=== PATIENT | female | born 1955 | race Native Hawaiian/Other Pacific Islander ===

== ENCOUNTER 2021-02-06 07:45 | Outpatient (CLI) | payer OTHER ==
[~2021-02-06] VITALS: Ht 152.4 cm; Wt 86.6 kg
== END 2021-02-06 22:43 | disposition home or self-care (01) ==
LOC: DIABINF 07:45
PROVIDERS: ATTEND Internal Medicine Endocrinology, Diabetes & Metabolism
DX: E11.65 Type 2 diabetes mellitus with hyperglycemia (principal); I10 Essential (primary) hypertension; E78.49 Other hyperlipidemia; E66.8 Other obesity; Z68.39 Body mass index [BMI] 39.0-39.9, adult; N18.9 Chronic kidney disease, unspecified; D64.89 Other specified anemias; H35.30 Unspecified macular degeneration; E55.9 Vitamin D deficiency, unspecified
CPT/HCPCS: 82948; 96365; 96366; 96521; J1815; J1817

== ENCOUNTER 2021-02-07 12:40 | Outpatient (CLI) | payer OTHER ==
[~2021-02-07] VITALS: Ht 152.4 cm; Wt 86.6 kg
== END 2021-02-07 20:09 | disposition home or self-care (01) ==
LOC: DIABINF 12:40
PROVIDERS: ATTEND Internal Medicine Endocrinology, Diabetes & Metabolism
DX: E11.65 Type 2 diabetes mellitus with hyperglycemia (principal); E11.40 Type 2 diabetes mellitus with diabetic neuropathy, unspecified; H35.30 Unspecified macular degeneration; I10 Essential (primary) hypertension; D64.89 Other specified anemias; E78.2 Mixed hyperlipidemia; E66.8 Other obesity; Z68.37 Body mass index [BMI] 37.0-37.9, adult; N18.31 Chronic kidney disease, stage 3a; E55.9 Vitamin D deficiency, unspecified
CPT/HCPCS: 82948; 96365; 96366; 96521; J1815; J1817

== ENCOUNTER 2021-02-13 07:47 | Outpatient (CLI) | payer OTHER ==
[~2021-02-13] VITALS: Ht 152.4 cm; Wt 86.6 kg
== END 2021-02-13 22:39 | disposition home or self-care (01) ==
LOC: DIABINF 07:47
PROVIDERS: ATTEND Internal Medicine Endocrinology, Diabetes & Metabolism
DX: E11.65 Type 2 diabetes mellitus with hyperglycemia (principal); E11.40 Type 2 diabetes mellitus with diabetic neuropathy, unspecified; H35.30 Unspecified macular degeneration; I10 Essential (primary) hypertension; D64.89 Other specified anemias; E78.2 Mixed hyperlipidemia; E66.8 Other obesity; Z68.37 Body mass index [BMI] 37.0-37.9, adult; N18.31 Chronic kidney disease, stage 3a; E55.9 Vitamin D deficiency, unspecified
CPT/HCPCS: 82948; 96365; 96366; 96521; J1815; J1817

== ENCOUNTER 2021-02-14 12:53 | Outpatient (CLI) | payer OTHER ==
[~2021-02-14] VITALS: Ht 152.4 cm; Wt 86.6 kg
== END 2021-02-14 19:21 | disposition home or self-care (01) ==
LOC: DIABINF 12:53
PROVIDERS: ATTEND Internal Medicine Endocrinology, Diabetes & Metabolism
DX: E11.65 Type 2 diabetes mellitus with hyperglycemia (principal); E11.40 Type 2 diabetes mellitus with diabetic neuropathy, unspecified; H35.30 Unspecified macular degeneration; I10 Essential (primary) hypertension; D64.89 Other specified anemias; E78.2 Mixed hyperlipidemia; E66.8 Other obesity; Z68.37 Body mass index [BMI] 37.0-37.9, adult; N18.31 Chronic kidney disease, stage 3a; E55.9 Vitamin D deficiency, unspecified
CPT/HCPCS: 82948; 96365; 96366; 96521; J1815; J1817

== ENCOUNTER 2021-02-20 08:05 | Outpatient (CLI) | payer OTHER ==
[~2021-02-20] VITALS: Ht 152.4 cm; Wt 86.6 kg
== END 2021-02-20 11:30 | disposition home or self-care (01) ==
LOC: DIABINF 08:05
PROVIDERS: ATTEND Internal Medicine Endocrinology, Diabetes & Metabolism
DX: E11.65 Type 2 diabetes mellitus with hyperglycemia (principal); E11.40 Type 2 diabetes mellitus with diabetic neuropathy, unspecified; E78.2 Mixed hyperlipidemia; I10 Essential (primary) hypertension; Z79.4 Long term (current) use of insulin; N18.31 Chronic kidney disease, stage 3a; E66.8 Other obesity; Z68.37 Body mass index [BMI] 37.0-37.9, adult; E55.9 Vitamin D deficiency, unspecified; H35.30 Unspecified macular degeneration
CPT/HCPCS: 82948; 96365; 96366; 96521; J1815; J1817

== ENCOUNTER 2021-02-21 12:47 | Outpatient (CLI) | payer OTHER ==
[~2021-02-21] VITALS: Ht 152.4 cm; Wt 87.1 kg
== END 2021-02-21 16:00 | disposition home or self-care (01) ==
LOC: DIABINF 12:47
PROVIDERS: ATTEND Internal Medicine Endocrinology, Diabetes & Metabolism
DX: E11.65 Type 2 diabetes mellitus with hyperglycemia (principal); E11.40 Type 2 diabetes mellitus with diabetic neuropathy, unspecified; E78.2 Mixed hyperlipidemia; I10 Essential (primary) hypertension; Z79.4 Long term (current) use of insulin; N18.31 Chronic kidney disease, stage 3a; E66.8 Other obesity; Z68.37 Body mass index [BMI] 37.0-37.9, adult; E55.9 Vitamin D deficiency, unspecified; H35.30 Unspecified macular degeneration
CPT/HCPCS: 82948; 96365; 96366; 96521; J1815; J1817

== ENCOUNTER 2021-02-27 08:11 | Outpatient (CLI) | payer OTHER ==
[~2021-02-27] VITALS: Ht 152.4 cm; Wt 87.1 kg
== END 2021-02-27 11:30 | disposition home or self-care (01) ==
LOC: DIABINF 08:11
PROVIDERS: ATTEND Nurse Practitioner
DX: E11.65 Type 2 diabetes mellitus with hyperglycemia (principal); E11.40 Type 2 diabetes mellitus with diabetic neuropathy, unspecified; E78.2 Mixed hyperlipidemia; I10 Essential (primary) hypertension; Z79.4 Long term (current) use of insulin; N18.31 Chronic kidney disease, stage 3a; E66.8 Other obesity; Z68.37 Body mass index [BMI] 37.0-37.9, adult; E55.9 Vitamin D deficiency, unspecified; H35.30 Unspecified macular degeneration; D64.89 Other specified anemias
CPT/HCPCS: 82948; 96365; 96366; 96521; J1815; J1817

== ENCOUNTER 2021-02-28 12:37 | Outpatient (CLI) | payer OTHER ==
[~2021-02-28] VITALS: Ht 152.4 cm; Wt 87.1 kg
== END 2021-02-28 16:00 | disposition home or self-care (01) ==
LOC: DIABINF 12:37
PROVIDERS: ATTEND Nurse Practitioner
DX: E11.65 Type 2 diabetes mellitus with hyperglycemia (principal); E11.40 Type 2 diabetes mellitus with diabetic neuropathy, unspecified; I10 Essential (primary) hypertension; E78.00 Pure hypercholesterolemia, unspecified; N18.30 Chronic kidney disease, stage 3 unspecified; E66.9 Obesity, unspecified; Z68.37 Body mass index [BMI] 37.0-37.9, adult; H35.30 Unspecified macular degeneration; E11.319 Type 2 diabetes mellitus with unspecified diabetic retinopathy without macular edema; E55.9 Vitamin D deficiency, unspecified; D64.89 Other specified anemias; J30.2 Other seasonal allergic rhinitis
CPT/HCPCS: 82948; 96365; 96366; 96521; J1815; J1817

== ENCOUNTER 2021-03-07 12:33 | Outpatient (CLI) | payer OTHER ==
[~2021-03-07] VITALS: Ht 152.4 cm; Wt 87.1 kg
== END 2021-03-07 23:20 | disposition home or self-care (01) ==
LOC: DIABINF 12:33
PROVIDERS: ATTEND Internal Medicine Endocrinology, Diabetes & Metabolism
DX: E11.65 Type 2 diabetes mellitus with hyperglycemia (principal); E11.40 Type 2 diabetes mellitus with diabetic neuropathy, unspecified; H35.30 Unspecified macular degeneration; I10 Essential (primary) hypertension; D64.89 Other specified anemias; E78.2 Mixed hyperlipidemia; E66.8 Other obesity; Z68.37 Body mass index [BMI] 37.0-37.9, adult; N18.31 Chronic kidney disease, stage 3a; E55.9 Vitamin D deficiency, unspecified
CPT/HCPCS: 82948; 96365; 96366; 96521; J1815; J1817

== ENCOUNTER 2021-03-14 12:35 | Outpatient (CLI) | payer OTHER ==
[~2021-03-14] VITALS: Ht 152.4 cm; Wt 87.1 kg
== END 2021-03-14 22:06 | disposition home or self-care (01) ==
LOC: DIABINF 12:35
PROVIDERS: ATTEND Nurse Practitioner
DX: E11.65 Type 2 diabetes mellitus with hyperglycemia (principal); E11.40 Type 2 diabetes mellitus with diabetic neuropathy, unspecified; H35.30 Unspecified macular degeneration; I10 Essential (primary) hypertension; D64.89 Other specified anemias; E78.2 Mixed hyperlipidemia; E66.8 Other obesity; Z68.37 Body mass index [BMI] 37.0-37.9, adult; N18.31 Chronic kidney disease, stage 3a; E55.9 Vitamin D deficiency, unspecified
CPT/HCPCS: 82948; 96365; 96366; 96521; J1815; J1817

== ENCOUNTER 2021-03-21 12:42 | Outpatient (CLI) | payer OTHER, SELFPAY ==
[~2021-03-21] VITALS: Ht 152.4 cm; Wt 87.1 kg
== END 2021-03-21 22:52 | disposition home or self-care (01) ==
LOC: DIABINF 12:42
PROVIDERS: ATTEND Nurse Practitioner
DX: E11.65 Type 2 diabetes mellitus with hyperglycemia (principal); E11.40 Type 2 diabetes mellitus with diabetic neuropathy, unspecified; H35.30 Unspecified macular degeneration; I10 Essential (primary) hypertension; D64.89 Other specified anemias; E78.2 Mixed hyperlipidemia; E66.8 Other obesity; Z68.37 Body mass index [BMI] 37.0-37.9, adult; N18.31 Chronic kidney disease, stage 3a; E55.9 Vitamin D deficiency, unspecified
CPT/HCPCS: 82948; 96365; 96366; 96521; J1815; J1817

== ENCOUNTER 2021-03-28 12:32 | Outpatient (CLI) | payer OTHER, SELFPAY ==
[~2021-03-28] VITALS: Ht 152.4 cm; Wt 87.1 kg
== END 2021-03-28 19:09 | disposition home or self-care (01) ==
LOC: DIABINF 12:32
PROVIDERS: ATTEND Nurse Practitioner
DX: E11.65 Type 2 diabetes mellitus with hyperglycemia (principal); E11.40 Type 2 diabetes mellitus with diabetic neuropathy, unspecified; H35.30 Unspecified macular degeneration; I10 Essential (primary) hypertension; D64.89 Other specified anemias; E78.2 Mixed hyperlipidemia; E66.8 Other obesity; Z68.37 Body mass index [BMI] 37.0-37.9, adult; N18.31 Chronic kidney disease, stage 3a; E55.9 Vitamin D deficiency, unspecified
CPT/HCPCS: 82948; 96365; 96366; 96521; J1815; J1817

== ENCOUNTER 2021-04-04 12:30 | Outpatient (CLI) | payer OTHER, SELFPAY ==
[~2021-04-04] VITALS: Ht 152.4 cm; Wt 87.1 kg
== END 2021-04-04 22:38 | disposition home or self-care (01) ==
LOC: DIABINF 12:30
PROVIDERS: ATTEND Nurse Practitioner
DX: E11.65 Type 2 diabetes mellitus with hyperglycemia (principal); E11.40 Type 2 diabetes mellitus with diabetic neuropathy, unspecified; H35.30 Unspecified macular degeneration; I10 Essential (primary) hypertension; D64.89 Other specified anemias; E78.2 Mixed hyperlipidemia; E66.8 Other obesity; Z68.37 Body mass index [BMI] 37.0-37.9, adult; N18.31 Chronic kidney disease, stage 3a; E55.9 Vitamin D deficiency, unspecified
CPT/HCPCS: 82948; 96365; 96366; 96521; J1815; J1817

== ENCOUNTER 2021-04-11 12:31 | Outpatient (CLI) | payer OTHER, SELFPAY ==
[~2021-04-11] VITALS: Ht 152.4 cm; Wt 87.1 kg
== END 2021-04-11 20:00 | disposition home or self-care (01) ==
LOC: DIABINF 12:31
PROVIDERS: ATTEND Nurse Practitioner
DX: E11.65 Type 2 diabetes mellitus with hyperglycemia (principal); E11.40 Type 2 diabetes mellitus with diabetic neuropathy, unspecified; I10 Essential (primary) hypertension; E78.00 Pure hypercholesterolemia, unspecified; N18.30 Chronic kidney disease, stage 3 unspecified; E66.8 Other obesity; Z68.37 Body mass index [BMI] 37.0-37.9, adult; H35.30 Unspecified macular degeneration; E55.9 Vitamin D deficiency, unspecified; D64.89 Other specified anemias; J30.2 Other seasonal allergic rhinitis
CPT/HCPCS: 82948; 96365; 96366; 96521; J1815; J1817

== ENCOUNTER 2021-04-18 11:21 | Outpatient (CLI) | payer OTHER, SELFPAY ==
[~2021-04-18] VITALS: Ht 152.4 cm; Wt 87.1 kg
== END 2021-04-18 23:10 | disposition home or self-care (01) ==
LOC: DIABINF 11:21
PROVIDERS: ATTEND Nurse Practitioner
DX: E11.65 Type 2 diabetes mellitus with hyperglycemia (principal); E11.40 Type 2 diabetes mellitus with diabetic neuropathy, unspecified; I10 Essential (primary) hypertension; E78.00 Pure hypercholesterolemia, unspecified; N18.30 Chronic kidney disease, stage 3 unspecified; E66.8 Other obesity; Z68.37 Body mass index [BMI] 37.0-37.9, adult; H35.30 Unspecified macular degeneration; E55.9 Vitamin D deficiency, unspecified; D64.89 Other specified anemias; J30.2 Other seasonal allergic rhinitis
CPT/HCPCS: 82948; 96365; 96366; 96521; J1815; J1817

== ENCOUNTER 2021-04-25 12:47 | Outpatient (CLI) | payer OTHER ==
[~2021-04-25] VITALS: Ht 152.4 cm; Wt 87.1 kg
== END 2021-04-25 19:07 | disposition home or self-care (01) ==
LOC: DIABINF 12:47
PROVIDERS: ATTEND Nurse Practitioner
DX: E11.65 Type 2 diabetes mellitus with hyperglycemia (principal); E11.40 Type 2 diabetes mellitus with diabetic neuropathy, unspecified; I10 Essential (primary) hypertension; E78.00 Pure hypercholesterolemia, unspecified; N18.30 Chronic kidney disease, stage 3 unspecified; E66.8 Other obesity; Z68.37 Body mass index [BMI] 37.0-37.9, adult; H35.30 Unspecified macular degeneration; E55.9 Vitamin D deficiency, unspecified; D64.89 Other specified anemias; J30.2 Other seasonal allergic rhinitis
CPT/HCPCS: 82948; 96365; 96366; 96521; J1815; J1817

== ENCOUNTER 2021-05-02 12:29 | Outpatient (CLI) | payer OTHER | END 2021-05-02 22:02 | disposition home or self-care (01) | LOC: DIABINF 12:29 | PROVIDERS: ATTEND Nurse Practitioner | DX: E11.65 Type 2 diabetes mellitus with hyperglycemia (principal); E11.40 Type 2 diabetes mellitus with diabetic neuropathy, unspecified; I10 Essential (primary) hypertension; E78.00 Pure hypercholesterolemia, unspecified; N18.30 Chronic kidney disease, stage 3 unspecified; E66.8 Other obesity; Z68.37 Body mass index [BMI] 37.0-37.9, adult; H35.30 Unspecified macular degeneration; E55.9 Vitamin D deficiency, unspecified; D64.89 Other specified anemias; J30.2 Other seasonal allergic rhinitis | CPT/HCPCS: 82948; 96365; 96366; 96521; J1815; J1817 ==

== ENCOUNTER 2021-05-09 12:24 | Outpatient (CLI) | payer OTHER ==
[~2021-05-09] VITALS: Ht 152.4 cm; Wt 87.1 kg
== END 2021-05-09 19:34 | disposition home or self-care (01) ==
LOC: DIABINF 12:24
PROVIDERS: ATTEND Nurse Practitioner
DX: E11.65 Type 2 diabetes mellitus with hyperglycemia (principal); E11.40 Type 2 diabetes mellitus with diabetic neuropathy, unspecified; I10 Essential (primary) hypertension; E78.00 Pure hypercholesterolemia, unspecified; N18.30 Chronic kidney disease, stage 3 unspecified; E66.8 Other obesity; Z68.37 Body mass index [BMI] 37.0-37.9, adult; H35.30 Unspecified macular degeneration; E55.9 Vitamin D deficiency, unspecified; D64.89 Other specified anemias; J30.2 Other seasonal allergic rhinitis
CPT/HCPCS: 82948; 96365; 96366; 96521; J1815; J1817

== ENCOUNTER 2021-05-24 16:10 | Emergency (ER) | payer OTHER ==
[~2021-05-24] VITALS: Ht 152.4 cm; Wt 84.8 kg
[2021-05-24 17:04] LABS: PLATELET COUNT 207 K/uL (152-353)
[2021-05-24 17:11] LABS: POTASSIUM 4.9 mmol/L (3.6-5.2)
[2021-05-24 19:50] VITALS: BP 132/54; TEMP 98.7
== END 2021-05-24 19:50 | disposition home or self-care (01) ==
LOC: ED 16:10
PROVIDERS: Emergency Medicine
DX: R50.9 Fever, unspecified (principal)
CPT/HCPCS: 36415; 80053; 81000; 83605; 85027; 87040; 87077; 87186; 87205; 96360; 96365; 99284; J1956